=== PATIENT | male | born 1995 | race Caucasian/White ===

== ENCOUNTER 2022-11-06 17:34 | Emergency (ER) | payer SELFPAY ==
--- NOTE | ~2022-11-06 | XR_ITS ---
EXAM: XR hand RT min 3V DATE: 11/06/2022 18:00 HISTORY: DOG BITE TO RIGHT HAND. SUPERIOR SWELLING/ PUNCTURE AT 5TH . COMPARISON: None available. FINDINGS: Normal mineralization. Old healed fifth metacarpal fracture. No acute fracture or dislocat ion. No lytic or blastic lesion. Joint spaces are maintained. No erosion or periosteal change. Soft t issue swelling over the fifth MCP joint. No subcutaneous gas or debris. IMPRESSION: No acute osseous finding in the right hand. No radiopaque foreign body detected. Reviewed, dictated and finalized at location K. IMPRESSION: No acute osseous finding in the right hand. No radiopaque foreign b kimberly detected.
--- NOTE | 2022-11-06 17:40 | PC.NURSE ---
Pt becoming restless wanting to leave and smoke refusing wound cleaning. Family called from waiting room to bedside.
[2022-11-06 17:44] VITALS: BP 121/87; PULSE 88; RESP 16; TEMP 36.3; O2SAT 100
--- NOTE | 2022-11-06 17:45 | ED.GENADULT ---
HPI - General Adult General Chief complaint: Animal Bite Stated complaint: dog bite; right hand injury Time Seen by Provider: 11/06/22 17:42 History of Present Illness HPI narrative: This is a 27-year-old male with reported history of schizophrenia, brought in by EMS with right hand pain after a ground-level fall and possible dog bite. The patient states his pet dog attacked him, and bit him on his right hand. He states he punched the dog with the same hand. He states while running away he fell striking his face but did not lose consciousness. EMS reports tachycardia but otherwise normal vital signs. The patient repeatedly states he only wants an xray of the hand and will refuse further treatment. Related Data Home Medications Medication Instructions Recorded Confirmed No Home Medications 11/06/22 11/06/22 Allergies Allergy/AdvReac Type Severity Reaction Status Date / Time codeine Allergy Anaphylaxis Verified 11/06/22 17:43 Review of Systems Review of Systems: CONSTITUTIONAL: Denies fever, chills, or sweats. CARDIOVASCULAR: Denies chest pain, palpitations, or edema. RESPIRATORY: Denies cough or dyspnea. GASTROINTESTINAL: Denies abdominal pain, nausea, vomiting, or diarrhea. GENITOURINARY: Denies dysuria or hematuria. SKIN: Denies rash or itching. MUSCULOSKELETAL: Right hand pain denies back pain, joint pain, or myalgia. NEUROLOGIC: Denies headache, numbness, dizziness, or weakness. PSYCHIATRIC: Denies anxiety or depression. Denies SI/HI PMFSH Social History Social History (Updated 11/06/22 @ 17:50 by Husam Sterling MD) Smoking status: Current every day smoker Alcohol intake: current Substance use: current Substance use type: marijuana Exam Narrative: GENERAL: Well-developed, well-nourished, Appears intoxicated and agitated, smells of alcohol. He is poorly cooperative with exam HEAD: Normocephalic, atraumatic. EYES: PERRLA and EOMI. ENT: Nares clear, no rhinorrhea or epistaxis. Dried blood noted beneath the bilateral nares. A superficial abrasion is noted at the upper lip just below the nose. Mucous membranes moist. Oropharynx without tonsillar hypertrophy exudate or other lesions. NECK: Supple. No adenopathy or masses. No midline spine tenderness to palpation no crepitus or step-off CHEST: Clear to auscultation. No respiratory distress. No wheezes rales or rhonchi HEART: Regular rate and rhythm. No murmur heard. Normal peripheral pulses. Capillary refill less than 2 seconds. ABDOMEN: Soft, nontender, nondistended, normal active bowel sounds. EXTREMITIES: Superficial abrasions are noted over the posterior aspect of the right hand. Swelling and mild ecchymosis is noted at the dorsal aspect of the right hand. There is no obvious puncture wounds of the hand. A superficial abrasion is noted over the lateral aspect of the right arm. Normal range of motion of the right fingers intact, though limited by pain. Normal range of motion of all other extremities. No edema. SKIN: Warm, dry, no rash. NEURO: No focal deficits. Alert and oriented x3. Patient seen ambulating without difficulty PSYCH: Normal mood and affect. Course Course Emergency Course: 17:58 - My review of the patient's x-rays are not concerning for fracture or retained foreign object. The patient repeatedly demands discharge. Will discharge with Augmentin. The patient's brother and [id number] appear sober are present at the emergency department and are willing to take responsibility for the patient. 18:30 - Xray of the right hand negative for fracture, dislocation or retained foreign object. Vital Signs Vital signs: Vital Signs Temperature 97.4 F L 11/06/22 17:44 Pulse Rate 88 11/06/22 17:44 Respiratory Rate 16 11/06/22 17:44 Blood Pressure 121/87 11/06/22 17:44 Pulse Oximetry 100 11/06/22 17:44 Oxygen Delivery Room Air 11/06/22 17:44 Temperature 97.4 F L 11/06/22 17:44 Pulse Rate 88
--- NOTE | 2022-11-06 17:50 | PC.NURSE ---
ERP to bedside view x-ray. Family remains with patient. Pt requesting to be discharged.
--- NOTE | 2022-11-06 18:04 | PC.NURSE ---
Animal bite form completed by sister and faxed to [facility] animal control.
== END 2022-11-06 18:05 | disposition home or self-care (01) ==
LOC: CHSED 18:15
PROVIDERS: Emergency Provider Preventive Medicine Aerospace Medicine
DX: M79.641 Pain in right hand (principal); W54.0XXA Bitten by dog, initial encounter; F17.200 Nicotine dependence, unspecified, uncomplicated; F12.90 Cannabis use, unspecified, uncomplicated; F20.9 Schizophrenia, unspecified
CPT/HCPCS: 73130; 99283

== ENCOUNTER 2024-04-12 04:49 | Emergency (ER) | payer BC, SELFPAY ==
--- NOTE | ~2024-04-12 | CT_ITS ---
EXAMINATION: CT abdomen pelvis wo con DATE: 04/12/2024 05:24 INDICATION: Left lower quadrant abdominal pain TECHNIQUE: Computed tomography (CT) of the abdomen and pelvis was performed without intravenous contr ast. Automated exposure control and iterative reconstruction technique were employed. The dose-length product was 340.62 mGy-cm. COMPARISON: None FINDINGS: Lung bases are clear. Visualized inferior heart is normal. No pericardial or pleural effusion. Liver, gallbladder, spleen, pancreas, bilateral adrenal glands and kidneys are normal. Bowels including the appendix are normal. Bladder is normal. No free intraperitoneal gas or fluid. No pathologically enla rged abdominal or pelvic lymphadenopathy. Bones are unremarkable. IMPRESSION: 1. No acute intra-abdominal/pelvic process. Reviewed, dictated and finalized at location A.
[2024-04-12 04:49] VITALS: BP 147/103; PULSE 79; RESP 18; O2SAT 100
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
--- NOTE | 2024-04-12 05:15 | PC.NURSE ---
patient transported to ct and back to room via stretcher
--- NOTE | 2024-04-12 05:47 | PC.NURSE ---
patient did not want to have blood gas drawn. dr mccauley in room talking with patient.
[2024-04-12 05:55] LABS: Base Excess ABG 0.9 mmol/L (0-2); Oxygen Content ABG 20.6 %vol (16.0-22.0); Oxygen Saturation ABG 96.9 % (95-97); PCO2 ABG 34.4 mmHg (35-45); PO2 ABG 93.7 mmHg (80-90); pH ABG 7.46 (7.35-7.45)
[2024-04-12 05:57] LABS: Device ROOM AIR; Modified Allen's Test Pass; Site Drawn RIGHT RADIAL
[2024-04-12 06:04] LABS: Basophils Absolute Auto 0.04 K/mm3 (0.00-0.10); Basophils Percent Auto 0.8 % (0.0-1.0); Hemoglobin 14.9 g/dL (14.0-18.0); Immature Granulocyte Absolute 0.01 K/mm3 (0.00-0.00); Immature Granulocyte Percent A 0.2 % (0.0-0.0); Lymphocytes Absolute Auto 1.41 K/mm3 (1.10-4.50); Lymphocytes Percent Auto 27.5 % (18.0-42.0); Mean Corpuscular HGB Conc 34.7 g/dL (32-36); Mean Corpuscular Hemoglobin 33.3 pg (27.0-31.0); Mean Corpuscular Volume 96.2 fL (78.0-102.0); Mean Platelet Volume 8.7 fl (8.7-11.0); Monocytes Absolute Auto 0.67 K/mm3 (0.10-0.90); Monocytes Percent Auto 13.1 % (2.0-11.0); Neutrophils Absolute Auto 2.89 K/mm3 (1.70-7.20); Neutrophils Percent Auto 56.4 % (50.0-70.0); Platelet Count Result 202 K/mm3 (150-420); Red Blood Count 4.47 M/mm3 (4.70-6.10); Red Cell Distribution Width 12.3 % (11.6-14.4); Venous Carboxyhemoglobin 3.5 %THb (0-2.0); White Blood Count 5.1 K/mm3 (4.8-10.8)
[2024-04-12 06:19] LABS: Alanine Aminotransferase 18 U/L (16-63); Albumin Level 3.9 g/dL (3.4-5.0); Alkaline Phosphatase 74 U/L (46-116); Anion Gap 6 mmol/L (4-12); Aspartate Amino Transferase 18 U/L (15-37); Bilirubin,Total 0.3 mg/dL (0.00-1.00); Blood Urea Nitrogen 6 mg/dL (7-18); Calcium 8.9 mg/dL (8.5-10.1); Carbon Dioxide 32 mmol/L (21-32); Chloride 100 mmol/L (98-108); Estimated CRCL calculation 122 ml/min; Estimated Glomerular Filt Rate > 60; Glucose 97 mg/dL (70-99); Osmolality Calculated 283 mOsm/kg (285-295); Sodium 138 mmol/L (136-145); Total Protein 7.3 g/dL (6.4-8.2)
[2024-04-12 07:41] VITALS: BP 138/88; PULSE 72; RESP 18; O2SAT 100
== END 2024-04-12 07:41 | disposition home or self-care (01) ==
PROVIDERS: Emergency Provider Emergency Medicine
DX: H60.92 Unspecified otitis externa, left ear (principal); T58.01XA Toxic effect of carbon monoxide from motor vehicle exhaust, accidental (unintentional), initial encounter; R11.2 Nausea with vomiting, unspecified; F17.200 Nicotine dependence, unspecified, uncomplicated
CPT/HCPCS: 36415; 36600; 74176; 80053; 82375; 82805; 85018; 85025; 99284